=== PATIENT | female | born 1950 | race African-American/Black ===

== ENCOUNTER 2017-03-28 09:50 | Inpatient (IN) | payer MEDICARE, OTHER ==
[2017-03-28 12:08] LABS: ADD MAN DIFF? NO
[2017-03-28 12:11] LABS: BASO # 0.1 x10^3/uL (0.0-0.2); BASO % 1 % (0-3); EOS # 0.2 x10^3/uL (0.0-0.7); EOS % 3 % (0-3); HEMATOCRIT 36.3 % (36.0-47.0); HEMOGLOBIN 12.1 g/dL (12.0-15.5); LYMPH # 1.7 x10^3/uL (1.0-4.8); LYMPH % 20 % (24-48); MEAN CORPUSCULAR HEMOGLOBIN 27 pg (25-35); MEAN CORPUSCULAR HGB CONC 33 g/dL (31-37); MEAN CORPUSCULAR VOLUME 82 fL (79-100); MONO # 0.4 x10^3/uL (0.0-1.1); MONO % 5 % (0-9); NEUT # 6.1 x10^3uL (1.8-7.7); NEUT % 71 % (31-73); PLATELET COUNT 311 x10^3/uL (140-400); RED BLOOD COUNT 4.44 x10^6/uL (3.50-5.40); RED CELL DISTRIBUTION WIDTH 14.7 % (11.5-14.5); WHITE BLOOD COUNT 8.6 x10^3/uL (4.0-11.0)
[2017-03-28 12:20] LABS: INR 1.2 (0.8-1.1); PARTIAL THROMBOPLASTIN TIME 26 SEC (24-38); PROTHROMBIN TIME PATIENT 14.1 SEC (11.7-14.0)
[2017-03-28 12:23] LABS: ANION GAP 11 (6-14); BLOOD UREA NITROGEN 18 mg/dL (7-20); BUN/CREATININE RATIO 14 (6-20); CALCIUM 9.4 mg/dL (8.5-10.1); CARBON DIOXIDE 27 mmol/L (21-32); CHLORIDE 101 mmol/L (98-107); CREATININE 1.3 mg/dL (0.6-1.0); GFR 49.3; GLUCOSE 116 mg/dL (70-99); POTASSIUM 3.7 mmol/L (3.5-5.1); SODIUM 139 mmol/L (136-145)
[2017-03-28 12:29] LABS: ALBUMIN 3.8 g/dL (3.4-5.0); ALBUMIN/GLOBULIN RATIO 0.8 (1.0-1.7); ALK PHOS 108 U/L (46-116); ALT (SGPT) 17 U/L (14-59); AST (SGOT) 25 U/L (15-37); TOTAL BILIRUBIN 0.4 mg/dL (0.2-1.0); TOTAL PROTEIN 8.4 g/dL (6.4-8.2)
[2017-03-28] MEDS ORDERED: ONDANSETRON PF 4 MG/2 ML VIAL. IV ×2 (13:30→15:00)
[2017-03-28] MEDS ORDERED: DOCUSATE SODIUM 100 MG CAPSULE. PO (13:30)
[2017-03-28] MEDS ORDERED: MORPHINE SULFATE 2 MG/ML DISP.SYRIN. IV (13:30)
[2017-03-28] MEDS ORDERED: ACETAMINOPHEN 325 MG TABLET. PO ×2 (13:30→15:00)
[2017-03-28] MEDS: IOHEXOL 300 MG/ML 100ML VIAL. IV (14:09)
[2017-03-28] MEDS ORDERED: CONTRAST GIVEN MC (14:15)
[2017-03-28] MEDS: IV NORMAL SALINE 1000ML BAG 1,000 ML IV (14:58)
[2017-03-28] MEDS ORDERED: HYDROcodone/APAP 5/325MG 1 TAB TABLET PO (16:15)
[2017-03-28] MEDS: amLODIPine BESYLATE 10 MG TABLET PO (18:44)
[2017-03-28] MEDS: ALPRAZolam 0.25 MG TABLET PO (20:23)
[2017-03-28] MEDS: hydrALAZINE 20 MG/ML VIAL. IVP (20:23)
[2017-03-29] MEDS: IV NORMAL SALINE 1000ML BAG 1,000 ML IV ×2 (00:58→10:31)
[2017-03-29 04:51] LABS: ADD MAN DIFF? NO
[2017-03-29 04:54] LABS: BASO # 0.1 x10^3/uL (0.0-0.2); BASO % 1 % (0-3); EOS # 0.3 x10^3/uL (0.0-0.7); EOS % 3 % (0-3); HEMATOCRIT 36.8 % (36.0-47.0); HEMOGLOBIN 12.4 g/dL (12.0-15.5); LYMPH # 2.3 x10^3/uL (1.0-4.8); LYMPH % 30 % (24-48); MEAN CORPUSCULAR HEMOGLOBIN 28 pg (25-35); MEAN CORPUSCULAR HGB CONC 34 g/dL (31-37); MEAN CORPUSCULAR VOLUME 82 fL (79-100); MONO # 0.5 x10^3/uL (0.0-1.1); MONO % 6 % (0-9); NEUT # 4.6 x10^3uL (1.8-7.7); NEUT % 60 % (31-73); PLATELET COUNT 330 x10^3/uL (140-400); RED BLOOD COUNT 4.51 x10^6/uL (3.50-5.40); RED CELL DISTRIBUTION WIDTH 14.5 % (11.5-14.5); WHITE BLOOD COUNT 7.7 x10^3/uL (4.0-11.0)
[2017-03-29 05:18] LABS: ANION GAP 10 (6-14); BLOOD UREA NITROGEN 15 mg/dL (7-20); CALCIUM 9.6 mg/dL (8.5-10.1); CARBON DIOXIDE 26 mmol/L (21-32); CHLORIDE 103 mmol/L (98-107); CREATININE 1.2 mg/dL (0.6-1.0); GFR 54.1; GLUCOSE 100 mg/dL (70-99); POTASSIUM 3.7 mmol/L (3.5-5.1); SODIUM 139 mmol/L (136-145)
[2017-03-29] MEDS: amLODIPine BESYLATE 10 MG TABLET PO (07:48)
[2017-03-29] MEDS: traMADol 50 MG TABLET PO (17:39)
[2017-03-30 05:35] LABS: ADD MAN DIFF? NO
[2017-03-30 05:53] LABS: BASO # 0.1 x10^3/uL (0.0-0.2); BASO % 1 % (0-3); EOS # 0.5 x10^3/uL (0.0-0.7); EOS % 7 % (0-3); HEMATOCRIT 34.9 % (36.0-47.0); HEMOGLOBIN 11.6 g/dL (12.0-15.5); LYMPH # 2.8 x10^3/uL (1.0-4.8); LYMPH % 40 % (24-48); MEAN CORPUSCULAR HEMOGLOBIN 27 pg (25-35); MEAN CORPUSCULAR HGB CONC 33 g/dL (31-37); MEAN CORPUSCULAR VOLUME 82 fL (79-100); MONO # 0.4 x10^3/uL (0.0-1.1); MONO % 6 % (0-9); NEUT # 3.1 x10^3uL (1.8-7.7); NEUT % 46 % (31-73); PLATELET COUNT 321 x10^3/uL (140-400); RED BLOOD COUNT 4.28 x10^6/uL (3.50-5.40); RED CELL DISTRIBUTION WIDTH 14.9 % (11.5-14.5); WHITE BLOOD COUNT 6.9 x10^3/uL (4.0-11.0)
[2017-03-30 05:57] LABS: ANION GAP 5 (6-14); BLOOD UREA NITROGEN 21 mg/dL (7-20); CALCIUM 8.7 mg/dL (8.5-10.1); CARBON DIOXIDE 29 mmol/L (21-32); CHLORIDE 105 mmol/L (98-107); CREATININE 1.1 mg/dL (0.6-1.0); GFR 59.8; GLUCOSE 101 mg/dL (70-99); POTASSIUM 3.9 mmol/L (3.5-5.1); SODIUM 139 mmol/L (136-145)
[2017-03-30] MEDS: ASPIRIN 325 MG TABLET PO (08:00)
[2017-03-30] MEDS: amLODIPine BESYLATE 10 MG TABLET PO (08:51)
[2017-03-30] MEDS ORDERED: ASPIRIN CHEWABLE 81 MG TABLET. (09:26)
[2017-03-30] MEDS ORDERED: ANTI-COAG MONITOR BY PHARMACY. MC (17:45)
[2017-03-30] MEDS ORDERED: APIXABAN 5 MG TABLET. PO (21:00)
== END 2017-03-30 15:30 | disposition home or self-care (01) | DRG 299 ==
LOC: ER 09:50 → 4 NORTH 12:17 → 2 NORTH 16:32
DX: I82.441 Acute embolism and thrombosis of right tibial vein (principal); I26.99 Other pulmonary embolism without acute cor pulmonale; E66.01 Morbid (severe) obesity due to excess calories; D25.9 Leiomyoma of uterus, unspecified; I16.0 Hypertensive urgency; Z68.37 Body mass index [BMI] 37.0-37.9, adult; I10 Essential (primary) hypertension; I27.21 Secondary pulmonary arterial hypertension; Z82.49 Family history of ischemic heart disease and other diseases of the circulatory system; Z87.891 Personal history of nicotine dependence; Z98.51 Tubal ligation status; G47.00 Insomnia, unspecified; I82.431 Acute embolism and thrombosis of right popliteal vein
CPT/HCPCS: 36415; 71275; 74177; 76856; 80048; 80053; 85025; 85220; 85610; 85730; 93306; 93971; 96372; 99285-25; J0360; J1650; Q9967

== ENCOUNTER → 2017-08-31 | Outpatient (CLI) | payer OTHER, MEDICARE | END | disposition home or self-care (01) | LOC: US 07:08 | DX: M71.22 Synovial cyst of popliteal space [Baker], left knee (principal); M71.21 Synovial cyst of popliteal space [Baker], right knee; I82.403 Acute embolism and thrombosis of unspecified deep veins of lower extremity, bilateral; I10 Essential (primary) hypertension; Z87.891 Personal history of nicotine dependence | CPT/HCPCS: 93970 ==

== ENCOUNTER → 2017-12-01 | Outpatient (CLI) | payer OTHER ==
[2017-03-30 11:00] VITALS: BP 118/70
[~2017-12-01] MED LIST: ALPR0.25 PO; AMLO10TA6 PO; APIX5TAB PO; APIX5TAB4 PO; ASPI325T8 PO; TRAM50TA PO
--- NOTE | 2017-12-01 13:59 | RAD ---
Right lower extremity venous ultrasound, 12/01/2017 : History: Right popliteal DVT Duplex evaluation including grayscale, color flow and spectral Doppler analysis was performed. The right common femoral and superficial femoral veins are widely patent. There is a smooth mural filling defect in the popliteal vein, similar to that seen on 08/31/2017. There is blood flow in the right popliteal vein. Patent posterior tibial and peroneal veins are present in the right calf. Incidental note is made of an elongated popliteal cyst measuring 5.6 x 3.6 x 0.7 cm. IMPRESSION: 1. Stable nonocclusive thrombus in the right popliteal vein. 2. No new DVT is identified. 3. Small right popliteal cyst. Electronically signed by: Jacobo Hicks MD (12/01/2017 1:35 PM) [facility]
== END | disposition home or self-care (01) ==
LOC: US 08:38
PROVIDERS: ATTEND Internal Medicine Hematology & Oncology
DX: I82.431 Acute embolism and thrombosis of right popliteal vein (principal); M71.21 Synovial cyst of popliteal space [Baker], right knee
CPT/HCPCS: 93971